=== PATIENT | female | born 1960 | race Caucasian/White ===

== ENCOUNTER 2024-02-10 09:07 | Outpatient (CLI) | payer BC, SELFPAY | END 2024-02-10 09:08 | disposition home or self-care (01) | LOC: CHSLAB 09:22 | PROVIDERS: PCP Specialist; Visit Provider Specialist | DX: D48.5 Neoplasm of uncertain behavior of skin (principal); D22.71 Melanocytic nevi of right lower limb, including hip; D22.72 Melanocytic nevi of left lower limb, including hip; D22.5 Melanocytic nevi of trunk | CPT/HCPCS: 88305 ==